=== PATIENT | male | born 1975 | race Caucasian/White ===

== ENCOUNTER 2016-09-14 23:13 | Emergency (ER) | payer OTHER ==
[2016-09-14 23:14] VITALS: BP 132/78; PULSE 82; RESP 16; O2SAT 99
[2016-09-14] MEDS ORDERED: 0.9% Sodium Chloride 1,000 ML IV ONE (23:18)
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
[2016-09-14] MEDS ORDERED: Ondansetron 2 mg/mL 2 mL Inj IVPUSH ONE (23:20)
[2016-09-14] MEDS: HYDROmorphone 0.5 mg/0.5 mL iSecure Syringe IVPUSH PRN (23:33)
[2016-09-15 00:03] LABS: INR 0.95 ratio
[2016-09-15 00:14] LABS: BASOPHILS % (AUTO) 0.3 % (0-3); EOSINOPHILS % (AUTO) 0.7 % (0-5); MONOCYTES % (AUTO) 7.8 % (4-12); Mean Corpuscular Hemoglobin 29.9 pg (27.0-35.0); Mean Corpuscular Volume 85 fL (81-100); NEUTROPHILS % (AUTO) 39.8 % (40-74); Platelet Count 325 bil/L (150-400)
[2016-09-15 00:27] LABS: Magnesium 2.6 mg/dL (1.6-2.6); TROPONIN T 0.01 ug/L (0.0-0.011)
[2016-09-15 00:34] VITALS: BP 141/90; PULSE 108; RESP 18; O2SAT 99
[2016-09-15] MEDS ORDERED: HYDROmorphone 0.5 mg/0.5 mL iSecure Syringe IVPUSH PRN (00:55)
[2016-09-15] MEDS ORDERED: Lidocaine 1%-Epi 1:100,000 50 mL Inj NERVEBLOCK ONE (00:55)
[2016-09-15] MEDS: HYDROmorphone 0.5 mg/0.5 mL iSecure Syringe IVPUSH PRN (00:58)
[2016-09-15] MEDS ORDERED: _HYDROcodone/APAP 5-325 mg Tablet PO PRN (01:25)
[2016-09-15] MEDS ORDERED: TdaP Vaccine 0.5 mL Inj IM ONE (01:40)
[2016-09-15 02:21] VITALS: BP 144/87; PULSE 96; RESP 18; O2SAT 97
[2016-09-15 02:24] LABS: APPEARANCE,URINE CLEAR (CLEAR,HAZY); COLOR,URINE YELLOW (YELLOW)
[2016-09-15 02:25] LABS: OCCULT BLOOD,URINE SMALL (NEGATIVE); UROBILINOGEN,URINE NORMAL (NORMAL)
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
== END 2016-09-15 02:37 | disposition home or self-care (01) ==
LOC: SED 23:13
DX: S01.81XA Laceration without foreign body of other part of head, initial encounter (principal); V23.4XXA Motorcycle driver injured in collision with car, pick-up truck or van in traffic accident, initial encounter; Y93.89 Activity, other specified; Y92.410 Unspecified street and highway as the place of occurrence of the external cause; Y99.8 Other external cause status; Z23 Encounter for immunization; Z88.1 Allergy status to other antibiotic agents
CPT/HCPCS: 12011; 36415; 70450; 71010; 71260; 72125; 72170; 74177; 80053; 81001; 83690; 83735; 84484; 85014; 85018; 85025; 85610; 86850; 90471; 90715; 93005; 96374; 96375; 99285; G0480; J1170; J2405; J7030; Q9967